=== PATIENT | female | born 1980 ===

== ENCOUNTER 2020-07-25 11:02 | Emergency (ER) | payer SELFPAY ==
[~2020-07-25] VITALS: Ht 160 cm; Wt 72.7 kg
--- NOTE | 2020-07-25 12:14 | ED EENT ---
History of Present Illness General Chief Complaint: Facial Problems Stated Complaint: L SIDE FACIAL SWELLING Nursing Triage Note: PT TO ED W/ C/O LT SIDE FACIAL SWELLING ONSET X2 DAYS, WORSE TODAY. PT DENIES INJURY ET DENIES IMPROVEMENT W/ OTC MEDS. Source: translator/interpreter, other (friend) Exam Limitations: language barrier History of Present Illness Date Seen by Provider: Jul 25, 2020 Time Seen by Provider: 12:07 Initial Comments This is a healthy-appearing 39-year-old female who presents to the ER with complaints of left-sided facial swelling started today. Has a history of broken and decayed teeth. Reports intermittent pain on the left side of her mouth with chewing over the past 2 weeks, however today she woke with left-sided facial swelling and increasing pain. Reports subjective fevers, denies chills, headache, cough, shortness of breath, nausea, vomiting, abdominal pain. Took ibuprofen last night around 1999, which minimally improved symptoms. Last menstrual period the 15th of this month. Timing/Duration: abrupt Severity: moderate Prearrival Treatment: over the counter meds Allergies and Home Medications Allergies Coded Allergies: No Known Drug Allergies (Unverified , 07/25/20) Home Medications Amoxicillin/Potassium Clav 1 Each Tablet, 1 EACH PO BID Prescribed by: KASANDRA EDUARDO on 07/25/20 1249 Hydrocodone/Acetaminophen 1 Each Tablet, 1 EACH PO Q6H PRN for PAIN-SEVERE (8- 10) Prescribed by: KASANDRA EDUARDO on 07/25/20 1249 Patient Home Medication List Home Medication List Reviewed: Yes Review of Systems Review of Systems Constitutional: chills (subjective fevers) Eyes: No Symptoms Reported Ears: No Symptoms Reported Nose: no symptoms reported Mouth: see HPI Throat: no symptoms reported Respiratory: no symptoms reported Cardiovascular: no symptoms reported Gastrointestinal: no symptoms reported Skin: no symptoms reported Neurological: No Symptoms Reported Hematologic/Lymphatic: No Symptoms Reported Immunological/Allergic: no symptoms reported Past Rmsnwcp-Rnvcwc-Cmuyfn Hx Patient Social History Alcohol Use: Denies Use Recreational Drug Use: No Smoking Status: Never a Smoker Recent Foreign Travel: No Contact w/Someone Who Travel: No Recent Infectious Disease Expo: No Recent Hopitalizations: No Physical Abuse: No Sexual Abuse: No Mistreated: No Fear: No Past Medical History Surgeries: Yes Oophorectomy Respiratory: No Cardiac: No Neurological: No Genitourinary: No Gastrointestinal: No Musculoskeletal: No Endocrine: No HEENT: No Cancer: No Psychosocial: No Integumentary: No Blood Disorders: No Physical Exam Vital Signs Vital Signs - First Documented 07/25/20 11:08 Temp 37.0 Pulse 72 Resp 20 B/P (MAP) 168/101 (123) Pulse Ox 100 O2 Delivery Room Air Height, Weight, BMI Height: '" Weight: lbs. oz. kg; 28.00 BMI Method: General Appearance: WD/WN, no apparent distress Eyes: bilateral eye normal inspection, bilateral eye EOMI Nose: normal inspection; No active bleeding, No discharge Mouth/Throat: pharynx normal, dental tenderness (Left upper and lower molars. Teeth are fractured with obvious decay. Has upper partial denture.); No excessive drooling, No pharynx swelling, No pharynx tenderness, No tonsillar swelling, No trismus; other (left buccal swelling ) Neck: non-tender, full range of motion, supple, normal inspection; No lymphadenopathy (R), No lymphadenopathy (L) Cardiovascular: regular rate, rhythm, no murmur Respiratory: chest non-tender, lungs clear, normal breath sounds, no respiratory distress Gastrointestinal: normal bowel sounds, non tender, soft Neurologic/Psychiatric: no motor/sensory deficits, alert, normal mood/affect, oriented x 3 Skin: normal color, warm/dry; No rash Progress/Results/Core Measures Results/Orders My Orders Orders - KASANDRA EDUARDO APRN Urine Bedside (07/25/20 12:11) Amoxicillin/Clavulanate Tablet (Augmenti (07/25/20 12:15) Hydrocodone/Apap 5/325 Tablet (Lortab 5 (07/25/20 12:15) Medications Given in ED Current Medications Medications Dose Ordered Sig/Reena Route Start Time Stop Time Status Last Admin Dose Admin Acetaminophen/ Hydrocodone Bitart 1 tab ONCE ONCE PO 07/25/20 12:15 07/25/20 12:16 DC 07/25/20 12:23 1 TAB Amoxicillin/ Clavulanate Potassium 875 mg ONCE ONCE PO 07/25/20 12:15 07/25/20 12:16 DC 07/25/20 12:23 875 MG Vital Signs/I&O 07/25/20 07/25/20 11:08 13:00 Temp 37.0 Pulse 72 70 Resp 20 18 B/P (MAP) 168/101 (123) 151/85 Pulse Ox 100 100 O2 Delivery Room Air Room Air Blood Pressure Mean: 123 Progress Progress Note : Progress Note Review discharge him with patient via interpreting services. Verbalized understanding. Departure Impression Primary Impression: Tooth abscess Additional Impression: Swelling of left side of face Disposition: HOME, SELF-CARE Condition: Improved Departure-Patient Inst. Decision time for Depature: 12:45 Referrals: NO,LOCAL PHYSICIAN (PCP/Family) Primary Care Physician Patient Instructions: Tooth Abscess (DC) Add. Discharge Instructions: Plan: 1. Discharge home. 2. Take Augmenting 875mg by mouth twice a day for 10 days as directed. Complete full course even if you start to feel better. 3. May use warm salt water to swish and spit for pain and comfort. 4. You can take Tylenol/Ibuprofen as needed for pain per package instructions. For SEVERE pain you may take Hydrocodone 5/325mg by mouth as needed every 6 hours. 5. Follow up with your dentist tomorrow morning. 6. Return to the ER for any new, worsening, or concerning symptoms. All discharge instructions reviewed with patient and/or family. Voiced understanding. Scripts Hydrocodone/Acetaminophen (Hydrocodone-Acetamin 5-325 mg) 1 Each Tablet 1 EACH PO Q6H PRN for PAIN-SEVERE (8-10) for 7 Days, #30 TAB 0 Refills Prov: KASANDRA EDUARDO AIR CONDITIONING MANAGER 07/25/20 Amoxicillin/Potassium Clav (Augmentin 875-125 Tablet) 1 Each Tablet 1 EACH PO BID for 10 Days, #20 TAB 0 Refills Prov: KASANDRA EDUARDO AIR CONDITIONING MANAGER 07/25/20 KASANDRA EDUARDO AIR CONDITIONING MANAGER Jul 25, 2020 12:14
[2020-07-25] MEDS ORDERED: HYDROcodone/APAP 5 MG/325 MG (LORTAB) TAB PO ONE (12:15)
[2020-07-25] MEDS ORDERED: AUGMENTIN 875 MG TAB (AMOXICILLIN/CLAVULANATE) PO ONE (12:15)
[2020-07-25] MEDS ORDERED: AMOX-358 PO (12:49)
[2020-07-25] MEDS ORDERED: ACHD5005 PO (12:49)
[2020-07-25 13:00] VITALS: BP 151/85
--- NOTE | 2020-07-25 13:00 | NUR ---
PT DISCHARGED TO HOME W/ RX ET INSTR VIA USE OF VALVER. PT VOICED UNDERSTANDING, NO QUESTIONS.
== END 2020-07-25 13:00 | disposition home or self-care (01) ==
LOC: ER 11:04
DX: K04.7 Periapical abscess without sinus (principal); R22.0 Localized swelling, mass and lump, head
CPT/HCPCS: 84703; 99283